=== PATIENT | female | born 1985 | race Caucasian/White ===

== ENCOUNTER 2018-11-21 14:02 | Inpatient (IN) | payer OTHER ==
[~2018-11-21] VITALS: Ht 162.5 cm; Wt 50.1 kg
--- NOTE | ~2018-11-21 | EKG ---
[place], [place] ELECTROCARDIOGRAM REPORT NAME: EDGAR ANTHONY UNIT #: [id number] ROOM: 518 DOCTOR: WILLAM DRAFT REPORT BIRTHDATE: [birth year] [facility] Test Date: 2018-11-21 Test Time: 14:39:18 Pat Name: EDGAR ANTHONY Department: Room: 518 Gender: F [address] Magistrate: Lorena Chiu : 1985 Requested By: MARJORIE FLANNERY Order Number: [id number] Reading MD: Ronald Mathur MD Measurements Intervals [place] Rate: 116 P: 59 IN: 192 QRS: 103 QRSD: 116 T: -73 QT: 360 QTc: 501 Interpretive Statements Ventricular-paced complexes No further analysis attempted due to paced rhythm No previous ECG available for comparison Electronically Signed On 11-25-2018 9:40:38 PST by Ronald Mathur MD CM:EKGRPT:ELECTROCARDIOGRAM REPORT [id number] MARJORIE FLANNERY EPIPHANY DRAFT REPORT MARJORIE FLANNERY
[2018-11-21 15:00] VITALS: BP 108/62
[2018-11-21 15:25] LABS: BASO % 0.2 % (0.0-1.0); EOS % 0.2 % (1.0-4.0); HEMATOCRIT 30.4 % (37.0-47.0); HEMOGLOBIN 9.9 g/dl (12.0-16.0); LYMPH # 2.7 10*3/uL (1.3-4.4); LYMPH % 21.3 % (27.0-41.0); MEAN CELL VOLUME 88.6 fl (81.0-99.0); MEAN CORPUSCULAR HGB 28.9 pg (27.0-31.0); MEAN CORPUSCULAR HGB CONC 32.6 g/dl (33.0-37.0); MEAN PLATELET VOLUME 12.8 fl (9.6-12.3); MONO # 0.6 10*3/uL (0.1-1.0); MONO % 5.1 % (3.0-9.0); NEUT # 9.1 10*3/uL (2.3-7.9); NEUT % 72.5 % (47.0-73.0); PLATELET COUNT AUTOMATED 74 10*3/uL (130-400); RED BLOOD COUNT 3.43 10*6/uL (4.10-5.10); RED CELL DISTRI WIDTH 14.6 % (0-14.5); WHITE BLOOD COUNT 12.5 10*3/uL (4.8-10.8)
[2018-11-21 15:50] LABS: ALBUMIN 2.3 gm/dl (3.1-4.5); ALKALINE PHOSPHATASE 81 U/L (45-117); BUN 12 mg/dl (7-24); CHLORIDE 93 mmol/L (98-107); CREATININE 0.75 mg/dL (0.55-1.02); LIPASE 106 U/L (73-393); POTASSIUM 4.4 mmol/L (3.5-5.1); SGOT/AST 19 IU/L (3-35); SGPT/ALT 12 U/L (12-78); SODIUM 127 mmol/L (136-145); TOTAL PROTEIN 7.2 gm/dL (6.4-8.2)
[2018-11-21 15:54] LABS: ACT PARTIAL THROMBO TIME 27.5 SECONDS (20.8-31.5); INTERNATIONAL NORM RATIO 1.3 (2.0-3.5)
[2018-11-21 15:56] LABS: TROPONIN I < 0.015 ng/ml (<0.045)
[2018-11-21 16:00] VITALS: BP 98/56
[2018-11-21 16:00] LABS: BILIRUBIN NEGATIVE (NEGATIVE); BLOOD 2+ (NEGATIVE); CLARITY CLOUDY (CLEAR); COLOR YELLOW (YELLOW); GLUCOSE NEGATIVE (NEGATIVE); KETONE NEGATIVE (NEGATIVE); LEUKO ESTERASE 2+ (NEGATIVE); NITRITE NEGATIVE (NEGATIVE); SPECIFIC GRAVITY 1.025 (1.005-1.030); UROBILINOGEN 0.2 E.U./dl (0.2-1.0)
[2018-11-21 16:08] LABS: URINE AMPHETAMINES > 1000 (1000ng/ml); URINE BARBITURATES < 200 (200ng/ml); URINE BENZODIAZEPINES < 200 (200ng/ml); URINE CANNABINOIDS (THC) < 50 (50ng/ml); URINE COCAINE < 300 (300ng/ml); URINE METHADONE < 300 (300ng/ml); URINE OPIATES > 300 (300ng/ml)
[2018-11-21 16:09] LABS: URINE PHENCYCLIDINE < 25 (25ng/ml)
[2018-11-21 16:12] LABS: BACTERIA 4+; RBC 16-20 rbc/hpf (0-2); WBC TNTC wbc/hpf (0-5)
--- NOTE | 2018-11-21 17:50 | NUR ---
MARJORIE LIRA AWARE OF CRITICAL LACTIC ACIC OF 2.8
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
[2018-11-21 18:27] LABS: ETHYL ALCOHOL < 3.0 mg/dl (<3); TROPONIN I < 0.015 ng/ml (<0.045)
--- NOTE | 2018-11-21 19:59 | NUR ---
24 HR chart check completed.
[2018-11-21 20:00] VITALS: BP 95/54
--- NOTE | 2018-11-21 21:57 | NUR ---
MEDICATED WITH TYLENOL FOR C/O BACK PAIN AND VISTARIL FOR ANXIETY.
[2018-11-22 02:03] LABS: BUN 12 mg/dl (7-24); CHLORIDE 99 mmol/L (98-107); CREATININE 0.66 mg/dL (0.55-1.02); SODIUM 131 mmol/L (136-145)
--- NOTE | 2018-11-22 02:41 | NUR ---
24 HR chart check completed.
--- NOTE | 2018-11-22 03:22 | NUR ---
ROBAXIN EFFECTIVE FOR MUSCLE CRAMPS.
--- NOTE | 2018-11-22 03:22 | NUR ---
ROBAXIN GIVEN FOR MUSCLE CRAMPS. WILL CONTINUE TO MONITOR AND REASSESS.
--- NOTE | 2018-11-22 04:00 | NUR ---
ROBAXIN EFFECTIVE FOR MUSCLE CRAMPS. PT RESTING.
[2018-11-22 08:00] VITALS: BP 100/52; BP 84/48
--- NOTE | 2018-11-22 08:46 | NUR ---
PATIENT MEDICATED WITH PRNS AVAILABLE FOR WITHDRAWAL SYMPTOMS, SEE EMAR, C/O ABDOMINAL CRAMPS, BODY ACHES, RESTLESSNESS, NAUSEA, AND ANXIETY. WILL MONITOR
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
--- NOTE | 2018-11-22 09:20 | NUR ---
ORDER FOR 1/2 NS 250CC/HR FOR TOTAL OF 500CC PLACED BY SAMI D/T THIS NURSE UNABLE TO PLACE ORDER. INFORMED THAT ORDER WAS PLACED FOR 1000CC TOTAL BUT ONLY 500CC WILL BE GIVEN.
--- NOTE | 2018-11-22 09:46 | NUR ---
PRNS EFFECTIVE FOR WITHDRAWAL SYMPTOMS
--- NOTE | 2018-11-22 09:47 | NUR ---
INFORMED THAT PATIENT IS REFUSING ANY LAB DRAWS TO BE DONE IN THE FUTURE. STATED TO CONTINUE 1/2 NS 500CC TOTAL DOSAGE AND RECHECK BP AFTER.
--- NOTE | 2018-11-22 10:46 | NUR ---
SPOKE WITH MARIA LUZ WOODS IN RESISTRATION TO SEE IF SHE KNEW IF PT HAS INSURANCE. SHE STATES FREDDY FROM [employer] [facility] IS GOING TO TALK WITH PT AND SHE WILL LET ME KNOW IF PT HAS INSURANCE OR NOT.
[2018-11-22 11:40] VITALS: BP 88/56
--- NOTE | 2018-11-22 11:40 | NUR ---
INFORMD THAT IVF COMPLETED AT THIS TIME. MANUAL BP=88/56 STATED THAT SHE IS ACHING AND DROWSY AND FUSSY. INFORMED TO GIVE THE SUBUTEX AND TYLENOL AND MONITOR.
--- NOTE | 2018-11-22 11:48 | NUR ---
PATIENT MEDICATED WITH TYLENOL FOR C/O BODY ACHING. WILL MONITOR
[2018-11-22 12:00] VITALS: BP 89/50
--- NOTE | 2018-11-22 12:48 | NUR ---
TYLENOL EFFECTIVE FOR BODY ACHES
[2018-11-22 14:16] LABS: BASO % 0.2 % (0.0-1.0); EOS # 0.1 10*3/uL (0.0-0.4); EOS % 0.6 % (1.0-4.0); HEMATOCRIT 27.3 % (37.0-47.0); HEMOGLOBIN 8.7 g/dl (12.0-16.0); LYMPH # 2.5 10*3/uL (1.3-4.4); LYMPH % 17.5 % (27.0-41.0); MEAN CELL VOLUME 88.9 fl (81.0-99.0); MEAN CORPUSCULAR HGB 28.3 pg (27.0-31.0); MEAN CORPUSCULAR HGB CONC 31.9 g/dl (33.0-37.0); MEAN PLATELET VOLUME 12.4 fl (9.6-12.3); MONO # 0.7 10*3/uL (0.1-1.0); MONO % 4.6 % (3.0-9.0); NEUT # 10.9 10*3/uL (2.3-7.9); NEUT % 76.5 % (47.0-73.0); NUCLEATED RED BLOOD CELL 0.1 % (0.0-0.0); PLATELET COUNT AUTOMATED 84 10*3/uL (130-400); RED BLOOD COUNT 3.07 10*6/uL (4.10-5.10); RED CELL DISTRI WIDTH 14.9 % (0-14.5); WHITE BLOOD COUNT 14.3 10*3/uL (4.8-10.8)
[2018-11-22 14:35] LABS: ALBUMIN 1.8 gm/dl (3.1-4.5); ALKALINE PHOSPHATASE 74 U/L (45-117); BUN 11 mg/dl (7-24); CHLORIDE 103 mmol/L (98-107); CREATININE 0.75 mg/dL (0.55-1.02); HDL CHOLESTEROL 9 mg/dl (40-60); PHOSPHOROUS 3.5 mg/dL (2.5-4.9); POTASSIUM 4.4 mmol/L (3.5-5.1); SGOT/AST 13 IU/L (3-35); SGPT/ALT 9 U/L (12-78); SODIUM 131 mmol/L (136-145); TOTAL PROTEIN 6.5 gm/dL (6.4-8.2); TRIGLYCERIDES 114 mg/dl (<150)
[2018-11-22 14:36] LABS: FREE T4 1.62 ng/dl (0.76-1.46)
[2018-11-22 14:40] LABS: CHOLESTEROL < 50 mg/dL (<200)
[2018-11-22 14:56] LABS: VITAMIN D, 25-HYDROXY 21.9 ng/mL (30-100)
[2018-11-22 16:00] VITALS: BP 106/58
--- NOTE | 2018-11-22 16:48 | NUR ---
PATIENT MEDICATED WITH MORTIN FOR C/O BODY ACHES. WILL MONITOR
[2018-11-22] MEDS ORDERED: GOOD SENSE400 MG/5 M PO (17:29)
[2018-11-22] MEDS ORDERED: MAG-AL PLUS 3030 ML PO (17:29)
[2018-11-22] MEDS ORDERED: Nicorette Gum4 MG PO (17:29)
[2018-11-22] MEDS ORDERED: DICYCLOMINE HCL20 MG PO (17:29)
[2018-11-22] MEDS ORDERED: BISAC-EVAC10 MG R (17:29)
[2018-11-22] MEDS ORDERED: BISACODYL LAXATI5 MG PO (17:29)
[2018-11-22] MEDS ORDERED: ATARAX,VISTARIL50 MG PO (17:29)
[2018-11-22] MEDS ORDERED: TYLENOL325 M2 PO (17:29)
[2018-11-22] MEDS ORDERED: LOPERAMIDE HCL2 MG PO ×2 (17:29)
[2018-11-22] MEDS ORDERED: ZOFRAN 4 MG ED2 TAB PO (17:29)
[2018-11-22] MEDS ORDERED: SENNA8.6 MG PO (17:29)
[2018-11-22] MEDS ORDERED: Ipratropium Brom3 ML NEB (17:29)
[2018-11-22] MEDS ORDERED: TRAZODONE50 MG PO (17:29)
[2018-11-22] MEDS ORDERED: THERA TABLET400 MCG PO (17:29)
[2018-11-22] MEDS ORDERED: TYLENOL EXTRA500 M2 PO (17:29)
[2018-11-22] MEDS ORDERED: BUPRENORPHINE HY2 MG SL (17:29)
[2018-11-22] MEDS ORDERED: NICODERM T (17:29)
[2018-11-22] MEDS ORDERED: METHOCARBAMOL750 M1 PO (17:29)
[2018-11-22] MEDS ORDERED: NATURE'S BLEND F1 MG PO (17:29)
[2018-11-22] MEDS ORDERED: MOTRIN 600 MG E4 TAB PO (17:29)
[2018-11-22] MEDS ORDERED: NATURE'S BLEND100 M2 PO (17:29)
[2018-11-22] MEDS ORDERED: ROPINIROLE HYD0.5 MG PO (17:29)
[2018-11-22] MEDS ORDERED: VITAMIN D32000 UNI1 PO (17:29)
--- NOTE | 2018-11-22 17:31 | NUR ---
CALLED AND REQUESTED PATIENT CURRENT STATUS. INFORMED OF POSSIBLE TRANSFER TO [facility] AND THAT PATIENT HAS BEEN AFEBRILE SINCE ADMISSION. STATES THAT SHE BELIEVES THAT THOSE ARE APPROPIATE DOSAGE. STATES TO CALL IF ANYTHING ARISES.
[2018-11-22] MEDS ORDERED: VANCOMYCIN1 GM/2502 IV (17:38)
[2018-11-22] MEDS ORDERED: GENTAMICIN 40 MG/ML IV (17:38)
[2018-11-22] MEDS ORDERED: CEFEPIME2 GM/100 M IV (17:38)
--- NOTE | 2018-11-22 17:48 | NUR ---
MOTRIN EFFECTIVE FOR BODY ACHES.
--- NOTE | 2018-11-22 18:22 | NUR ---
DR.CHIAO MARÍA JONES IS THE SIGNALER AT [facility] AND HE WILL BE ACCEPTING PATIENT.
--- NOTE | 2018-11-22 23:54 | NUR ---
[facility] CALLED WITH A BED. PATIENT WILL BE TRANSFERRED TO [facility], FLOOR 52, BED 13. NUMBER FOR REPORT IS [phone]. [facility] CALLED AND WILL BE HERE TO TRANSPORT PATIENT SHORTLY.
[2018-11-23] VITALS: BP 94/55
--- NOTE | 2018-11-23 00:27 | NUR ---
NURSE TO NURSE REPORT CALLED TO [facility] AT [phone]. SPOKE TO GRECIA ON J52. CALL BACK NUMBER LEFT FOR 5 EAST IN CASE ANY QUESTIONS WOULD ARISE. [facility] HERE TO TRANSPORT PATIENT. STUDENT SUPPORT ADVISOR REMOVED AND PLACED IN YELLOW BIN. PATIENT'S BELONGINGS GATHERED AND SENT WITH PATIENT. PATIENT TRANSPORTED OFF FLOOR ON STRETCHER. PATIENT IS ALERT AND ORIENTED X3. LAST BP 94/55.
== END 2018-11-23 00:27 | disposition short-term general hospital (02) | DRG 871 ==
LOC: ED 14:02 → EDHOLD 16:30 → 5E 16:30
PROVIDERS: Internal Medicine; Internal Medicine Nephrology; Nurse Practitioner Family; ADMIT Internal Medicine
DX: A41.9 Sepsis, unspecified organism (principal); E43 Unspecified severe protein-calorie malnutrition; E87.1 Hypo-osmolality and hyponatremia; N39.0 Urinary tract infection, site not specified; E87.2 Acidosis; F11.23 Opioid dependence with withdrawal; I95.9 Hypotension, unspecified; D64.9 Anemia, unspecified; D69.6 Thrombocytopenia, unspecified; E87.8 Other disorders of electrolyte and fluid balance, not elsewhere classified; F15.10 Other stimulant abuse, uncomplicated; E55.9 Vitamin D deficiency, unspecified; R65.20 Severe sepsis without septic shock; R31.9 Hematuria, unspecified; Z53.20 Procedure and treatment not carried out because of patient's decision for unspecified reasons; Z95.0 Presence of cardiac pacemaker; Z95.2 Presence of prosthetic heart valve; Z89.512 Acquired absence of left leg below knee; Z89.511 Acquired absence of right leg below knee